=== PATIENT | female | born 1935 | race Caucasian/White ===

== ENCOUNTER → 2017-01-10 | Outpatient (CLI) | payer MEDICARE, BC ==
[~2017-01-10] VITALS: Ht 154.9 cm; Wt 83.8 kg
[~2017-01-10] MED LIST: ALBU18HF2 INH; ALIR75SY INJ; AMLO2.5T PO; ASPI-1085 PO; CALC-139 PO; CARB30DR4 BOTH EYES; CEPH250T PO; CHOL100018 PO; ESOM20CA PO; LEVO50TA11 PO; LORA10TA62 PO; MAGN400C PO; MULT-1243 PO; NEBI10TA PO; NITR100C PO; REGADENOSON 0.4mg/5ml INJECTION IV ONE; SALINE FLUSH 10ml SYRINGE ONE
--- NOTE | 2017-01-12 14:48 | ESTF ---
MYOCARDIAL PERFUSION SCAN DATE 01/10/2017 Mrs. Guillen underwent a myocardial perfusion scan. She received 12.2 mCi of Technetium-99m Myoview for the rest study and 33.0 mCi of Technetium-99m Myoview for the stress portion of the study. She received 0.4 mg of Lexiscan. Her baseline EKG shows sinus bradycardia and a mildly long QT interval. Her baseline blood pressure was 143/76. Baseline heart rate was 59. She was imaged scintigraphically post Lexiscan and again at rest. Post Lexiscan views show no evidence of perfusion defects. Rest views were also normal. Ejection fraction was 69%. No wall motion abnormalities were noted. She experienced no chest pain during the Lexiscan administration. She was short of breath. Rare PVCs were noted. CONCLUSION 1. Clinically negative for ischemia. 2. Electrocardiographically negative for ischemia as there are no significant ischemic EKG changes. 3. Good blood pressure at baseline. 4. Scintigraphically negative for ischemia with well-preserved ejection of 69% and no wall motion abnormalities noted. REASON FOR PHARMACOLOGICAL STUDY Severe hip pain which is new for the patient. MTDD
--- NOTE | 2017-01-13 09:54 | ECHOF ---
DATE OF PROCEDURE 01/10/2017 DESCRIPTION OF PROCEDURE 2D, M-mode, color flow and Doppler echocardiographic examinations were performed on this patient. The left atrium is mildly enlarged. The left ventricle is normal in size. The left ventricle, including the septum, moves appropriately during systole and diastole. Overall ejection fraction is between 67% and 76%. The mitral valve opens appropriately and does not evidence stenosis or prolapse. The aortic, tricuspid and pulmonic valves appear normal. There is trace mitral regurgitation, trace tricuspid regurgitation and trace pulmonary insufficiency. Pulmonary artery pressures are normal at 28 mmHg. IVC collapses well. The right atrium and right ventricle, including inflow and outflow tracts, appear normal. Right ventricular function is normal. Aortic root is normal. No vegetations are seen on any valve. No intracavitary masses or thrombi are noted. There is no pericardial effusion. CONCLUSION 1. Trace MR, trace TR, trace PI. 2. Normal LV function between 67% and 75%. 3. Normal chamber size except for some mild left atrial enlargement. MTDD
== END ==
LOC: IMA 07:18
PROVIDERS: ATTEND Internal Medicine Cardiovascular Disease
DX: I10 Essential (primary) hypertension (principal)
CPT/HCPCS: 78452; 93017; 93306; A9502; J2785